=== PATIENT | male | born 1980 | race Two or more races ===

== ENCOUNTER 2017-05-27 18:28 | Emergency (ER) | payer OTHER ==
[2017-05-27] MEDS ORDERED: Proparacaine 0.5% Ophth Soln 15 ML Bottle ONE (18:50)
--- NOTE | 2017-05-27 19:25 | EDM.PDOC ---
ED HPI GENERAL MEDICAL PROBLEM - General Chief Complaint: Eye Problems Stated Complaint: SOMETHING IN EYE Time Seen by Provider: 05/27/17 19:23 Source of Information: Reports: Patient, Call Manager, RN Notes Reviewed History Limitations: Reports: Language Barrier - History of Present Illness INITIAL COMMENTS - FREE TEXT/NARRATIVE: 37-year-old gentleman presents to the emergency department today sent over from clinic for a foreign body in his right eye he was striking a piece of metal which then embedded into his eye earlier this morning he is experiencing severe pain exam is limited due to language barrier we did use the [employer] Right Eye Pain Score (Numeric/FACES): 10 - Related Data Allergies Allergy/AdvReac Type Severity Reaction Status Date / Time No Known Allergies Allergy Verified 05/27/17 18:55 Home Meds: Home Meds NK [No Known Home Meds] 05/27/17 [History] Past Medical History - Past Health History Medical/Surgical History: Denies Medical/Surgical History Social & Family History - Tobacco Use Smoking Status *Q: Unknown Ever Smoked ED ROS GENERAL - Review of Systems Review Of Systems: See Below Constitutional: Reports: No Symptoms HEENT: Reports: Eye Pain ED EXAM GENERAL W FULL EYE - Physical Exam Exam: See Below Text/Narrative:: Examination of the right eye pupils are equal round reactive to light and accommodation a visible foreign body is appreciated cornea 7 o'clock position, after adequate anesthesia with proparacaine this was removed with a bur tool revealing a corneal ulcer underneath foreseen stain highlighted that area only, copious amounts of fluid were then used to flush the eye approximately 250 mL, improvement in pain was appreciated after the procedure. Attempted to do visual screening but were unsuccessful secondary to language barrier ED EYE w/ Add Procedure - Eye Procedure Alcaine Drops Administered: Yes Eye FB Removal: Other (Virtual) Eye Irrigated w/ Saline (ccs): 250 Course - Vital Signs Last Recorded V/S: Last Vital Signs Temp 99.1 F 05/27/17 18:54 Pulse 80 05/27/17 18:54 Resp 20 05/27/17 18:54 BP 148/101 H 05/27/17 18:54 Pulse Ox 95 05/27/17 18:54 - Orders/Labs/Meds Meds: Medications Discontinued Medications Generic Name Dose Route Start Last Admin Trade Name Freq PRN Reason Stop Dose Admin Proparacaine HCl Confirm 05/27/17 18:50 Proparacaine 0.5% Ophth Soln Administered 05/27/17 18:51 Dose 15 ml .ROUTE .STK-MED ONE Departure - Departure Time of Disposition: 19:28 Disposition: Home, Self-Care 01 Condition: Good Clinical Impression: Foreign body of right eye Qualifiers: Encounter type: initial encounter Qualified Code(s): T15.91XA - Foreign body on external eye, part unspecified, right eye, initial encounter Corneal ulcer Qualifiers: Laterality: right Qualified Code(s): H16.001 - Unspecified corneal ulcer, right eye - Discharge Information Referrals: PCP,None [Primary Care Provider] - Forms: ED Department Discharge Additional Instructions: Please take full course of antibiotics, use hydrocodone as needed for pain control, please follow-up at the [place] [facility] tomorrow for further evaluation - Assessment/Plan Plan: Assessment Acuity = acute Site and laterality = foreign body right eye Etiology = some type of metal Manifestations = corneal ulcer Location of injury = Home Lab values = none Plan Provided hydrocodone for pain control 5/325 total #4 tablets, tetanus shot provided as well as gentamicin ophthalmic drops plan is to follow-up with eye care provider tomorrow Patient was in agreement with the plan all questions were answered, they were instructed to return to the emergency department or call for worsening symptoms. This note was dictated using [employer] voice recognition software please call with any questions.
[2017-05-27] MEDS ORDERED: Diphtheria,Pertussis(Acell),Tetanus Vaccine 0.5 ML SDV IM ONE (19:26)
[2017-06-04] MEDS ORDERED: Proparacaine 0.5% Ophth Soln 15 ML Bottle EYEBOTH STA (04:53)
== END 2017-05-27 19:54 | disposition home or self-care (01) ==
LOC: JP.ED 18:28
DX: T15.01XA Foreign body in cornea, right eye, initial encounter (principal); H16.001 Unspecified corneal ulcer, right eye
CPT/HCPCS: 65220; 90471; 90715; 99283; A9270